=== PATIENT | female | born 1960 | race Caucasian/White ===

== ENCOUNTER 2022-02-27 14:19 | Outpatient (CLI) | payer MEDICARE, SELFPAY ==
--- NOTE | ~2022-02-27 | XR_ITS ---
EXAMINATION: XR hip LT min 3V w AP pelvis EXAM DATE: 02/27/2022 14:51 INDICATION: Left hip pain. TECHNIQUE: Left hip frontal, crosstable lateral and 'frog-leg' projections for interpretation. Fronta l projection pelvis. There is no prior study for comparison. FINDINGS: Smooth left hip femoral head contour, no radiographic evidence of avascular necrosis. Appea nirmala to the left hip intertrochanteric region is likely from old healed fracture and resultant bulky heterotopic ossification. There are no acute fractures or dislocations identified. There is no subc utaneous gas. Calcifications in the pelvis are believed to be phleboliths. There are gluteal granulo mas, calcifications. There are no radiopaque foreign bodies. There is mild to moderate symmetric bi lateral hip primary osteoarthritis. IMPRESSION: 1. Mild to moderate symmetric bilateral hip osteoarthritis. 2. Old left intertrochanteric fracture with bulky heterotopic ossification. Reviewed, dictated and finalized at location [facility].
== END 2022-02-27 14:20 | disposition home or self-care (01) ==
DX: M16.0 Bilateral primary osteoarthritis of hip (principal)
CPT/HCPCS: 73502

== ENCOUNTER 2022-03-04 14:40 | Emergency (ER) | payer MEDICARE, SELFPAY ==
--- NOTE | ~2022-03-04 | CT_ITS ---
EXAMINATION: CT brain wo con DATE: 03/04/2022 16:00 INDICATION: Fall. Head injury TECHNIQUE: Computed tomography (CT) of the head was performed without intravenous contrast. The mA wa s adjusted according to patient size. Iterative reconstruction technique was employed. Exam dose: 60 5.33 mGy-cm total exam DLP. COMPARISON: None FINDINGS: Chronic right frontal infarct with compensatory dilatation of the right frontal horn. No intracranial mass lesion or hemorrhage or recent cerebrovascular accident.. Bilateral carotid siphon internal carotid artery calcification. There is nonspecific diminished atte nuation of the cerebral white matter, likely due to chronic small vessel ischemic changes. No midline shift or mass effect. No subdural or epidural hematoma. No fracture or bone destruction of the cranial vault. The paranasal sinuses and mastoid air cells are clear. IMPRESSION: Chronic right frontal cerebrovascular accident Cerebrovascular atherosclerotic calcification and chronic small vessel ischemic changes Reviewed, dictated and finalized at [facility]. Reviewed, dictated and finalized at location A.
--- NOTE | ~2022-03-04 | CT_ITS ---
EXAMINATION: CT cervical spine wo con DATE: 03/04/2022 16:00 INDICATION: Neck injury. Fall. TECHNIQUE: Computed tomography (CT) of the cervical spine was performed without intravenous contrast. Automated exposure control and iterative reconstruction technique were employed. The dose-length pro duct was 110.15 mGy-cm. COMPARISON: None FINDINGS: There is a small left mastoid effusion. There is 14 degrees levoscoliosis of cervical spine . There are changes of anterior fusion procedure from C4 to C7 with healed interbody bone graft, inte rbody devices, and anterior plate and screws. Vertebral body heights are normal. There is mildly decr eased disc height at C3-C4. The following disc levels are specifically discussed: C2-C3: There is mild bilateral uncovertebral joint osteoarthritis. There is severe right and moderate left facet joint osteoarthritis. There is mild right neural foraminal stenosis. There is no central canal stenosis. C3-C4: There is severe bilateral uncovertebral joint osteoarthritis. There is severe bilateral facet joint osteoarthritis. There is moderate right and mild left neural foraminal stenosis. There is mild central canal stenosis. C4-C5: There is no uncovertebral joint hypertrophy. There is mild right facet joint hypertrophy. Ther e is no neural foraminal stenosis. There is no central canal stenosis. C5-C6: There is mild left uncovertebral joint hypertrophy. There is mild right facet joint hypertroph y. There is mild left neural foraminal stenosis. There is no central canal stenosis. C6-C7: There is no uncovertebral joint hypertrophy. There is no facet joint hypertrophy. There is no neural foraminal stenosis. There is no central canal stenosis. C7-T1: There is no uncovertebral joint osteoarthritis. There is mild bilateral facet joint osteoarthr itis. There is no neural foraminal stenosis. There is no central canal stenosis. IMPRESSION: 1. No fracture. 2. Anterior fusion procedure from C4 to C7. 3. Moderate cervical spondylosis. 4. Cervical levoscoliosis. Reviewed, dictated and finalized at location A.
--- NOTE | ~2022-03-04 | XR_ITS ---
EXAMINATION: XR chest 2V EXAM DATE: 03/04/2022 15:46 INDICATION: Syncopal episode, very stiff upper body. TECHNIQUE: Frontal and lateral projections of the chest obtained and reviewed. There is no prior megan dy for comparison. FINDINGS: The lungs are clear. There are no pleural effusions. The cardiomediastinal silhouette is within normal limits. There is no pneumothorax suspected. The bones and soft tissues are unremarkab le. There is cervical fusion hardware. IMPRESSION: No acute cardiopulmonary findings. Reviewed, dictated and finalized at location B.
--- NOTE | ~2022-03-04 | XR_ITS ---
XR foot LT min 3V DATE: 03/04/2022 15:47 INDICATION: The lower back in today. Bruising throughout the ankle and foot. TECHNIQUE: 4 views COMPARISON: None FINDINGS: Diffuse osteopenia. Status post surgical fusion at the tibiotalar joint. Status post surgical fusion at the proximal interphalangeal joint of the second and fifth digits. Osteoarthritic change at the first metatarsophalangeal and first interphalangeal joint. Old healed fracture at the neck of the fourth metatarsal bone. No recent fracture or dislocation is detected. No periosteal reaction or bone destruction. IMPRESSION: Successful surgical fusion at tibiotalar and second and fifth proximal interphalangeal jacob ints Osteopenia No recent fracture or dislocation Reviewed, dictated and finalized at location A. IMPRESSION: Successful surgical fusion at tibiotalar and second and fifth proxi mal interphalangeal joints Osteopenia No recent fracture or dislocation
--- NOTE | ~2022-03-04 | XR_ITS ---
XR ankle LT min 3V DATE: 03/04/2022 15:45 INDICATION: Fell over a vacuum cleaner furniture today. Bruising throughout ankle. TECHNIQUE: 4 views COMPARISON: None: FINDINGS: Status post surgical fusion at tibiotalar and proximal interphalangeal joints of second and fifth digits. No recent fracture or dislocation. No periosteal reaction or bone destruction. No periosteal reacti on or bone destruction. Diffuse osteopenia. IMPRESSION: Diffuse osteopenia Status post surgical fusion at tibiotalar and second and fifth proximal interphalangeal joints No fracture or dislocation Reviewed, dictated and finalized at location A. IMPRESSION: Diffuse osteopenia Status post surgical fusion at tibiotalar and second and fifth proximal interph alangeal joints No fracture or dislocation
[2022-03-04 14:43] VITALS: BP 103/54; PULSE 94; RESP 16; TEMP 37.1; O2SAT 99
--- NOTE | 2022-03-04 14:59 | ECG_ITS ---
Measurements Intervals [place] Rate: 71 P: 83 RI: 132 QRS: 76 QRSD: 90 T: 66 QT: 369 QTc: 402 Interpretive Statements SINUS RHYTHM NORMAL ECG NO PREVIOUS ECG AVAILABLE FOR COMPARISON Electronically Signed On 03-04-2022 17:06:05 CDT by Lars Coates M.D.
--- NOTE | 2022-03-04 15:08 | ED.FALL ---
HPI - Fall General Chief Complaint: Fall Stated Complaint: fall, head and neck injury Time Seen by Provider: 03/04/22 14:51 History of Present Illness HPI Narrative: 61-year-old female presents the emergency room status post fall that occurred this morning. Patient states that she was lying in bed stood up quickly, and her next memory was laying on the floor after she struck her head on a nearby vacuum suede cleaner. Patient denies a syncopal episode however cannot remember the events from when she stood up to get out of bed and when she was lying on the floor. Patient denies heart history. Patient states that she also twisted her left foot, which she says she has recently had a second and fifth metatarsal fusion. Patient has a history of a C2-C5 cervical fusion. She was sent here by her primary care physician in [place] and he is requesting a full head and neck work-up . Patient is alert and oriented x3 at this time Related Data Allergies Allergy/AdvReac Type Severity Reaction Status Date / Time No Known Allergies Allergy Verified 03/04/22 14:59 Review of Systems Review of Systems: CONSTITUTIONAL: Denies fever, chills, or sweats. EYES: Denies visual changes, redness, or discharge. ENT: Denies rhinorrhea, congestion, sore throat, or otalgia. CARDIOVASCULAR: Denies chest pain, palpitations, or edema. RESPIRATORY: Denies cough or dyspnea. GASTROINTESTINAL: Denies abdominal pain, nausea, vomiting, or diarrhea. GENITOURINARY: Denies dysuria or hematuria. SKIN: Denies rash or itching. MUSCULOSKELETAL: Reports head and cervical spine pain, reports left foot pain NEUROLOGIC: Denies headache, numbness, dizziness, or weakness. PSYCHIATRIC: Denies anxiety or depression. Exam Narrative: GENERAL: Well-appearing, well-nourished, and in no acute distress. HEAD: Normocephalic, atraumatic. EYES: PERRLA and EOMI. CHEST: Clear to auscultation. No respiratory distress. No wheezes rales or rhonchi HEART: Regular rate and rhythm. No murmur heard. Normal peripheral pulses. ABDOMEN: Soft, nontender, nondistended, normal active bowel sounds. EXTREMITIES: Left foot: Tenderness to the base of the fifth metatarsal. C-spine: Midline tenderness, no step-offs, no bony abnormality, full range of motion. SKIN: Warm, dry, no rash. NEURO: No focal deficits. Alert and oriented x3. PSYCH: Normal mood and affect. Course Vital Signs Vital signs: Vital Signs Temperature 37.1 C 03/04/22 14:43 Pulse Rate 94 03/04/22 14:43 Respiratory Rate 16 03/04/22 14:43 Blood Pressure 103/54 L 03/04/22 14:43 Pulse Oximetry 99 03/04/22 14:43 Temperature 37.1 C 03/04/22 14:43 Pulse Rate 94 03/04/22 14:43 Respiratory Rate 16 03/04/22 14:43 Blood Pressure 103/54 L 03/04/22 14:43 Pulse Oximetry 99 03/04/22 14:43 MDM - Fall MDM Narrative Medical decision making narrative: 61-year-old female presented the emergency room with multiple complaints. Patient states that she woke up this morning abruptly stood up out of bed and then fell striking her head on a nearby vacuum suede cleaner. Patient is complaining of neck and head pain, and also left foot pain. Patient has a history of cervical fusion, and effusions of her second and fifth metatarsals. Patient was evaluated for possible syncopal episode as well. EKG was normal sinus with no abnormalities. Chest x-ray showed no acute cardiothoracic abnormalities. CBC, CMP, and troponin are all unremarkable. X-ray of the left foot and ankle showed multiple healed fractures, with fusions of the second and fifth metatarsals. C-spine was negative for fracture. CT brain was negative for any intracranial abnormalities. Medical Records Attestation: I reviewed the patient's medical records. Lab Data Attestation: I reviewed the patient's lab results. Result diagrams: 03/04/22 15:19 03/04/22 15:19 Labs: Lab Results 03/04/22 03/04/22 Range/Units 15:19 15:19 WBC Pending RBC
[2022-03-04 15:29] LABS: Hematocrit 44.6 % (37.0-47.0); Hemoglobin 14.3 g/dL (12.0-15.0); Mean Corpuscular HGB Conc 32.1 g/dl (32-36); Mean Corpuscular Hemoglobin 31.3 pg (26-34); Mean Corpuscular Volume 97.6 fl (80-100); Platelet Count Result 411 k/mm3 (150-375); Red Blood Count 4.57 M/mm3 (4.2-5.4); Red Cell Distribution Width 15.2 % (11.5-14.5); White Blood Count 8.6 K/mm3 (4.5-10.0)
[2022-03-04 15:42] LABS: Alanine Aminotransferase 18 U/L (4-35); Albumin Level 4.5 g/dL (3.5-5.1); Alkaline Phosphatase 79 U/L (38-126); Anion Gap 10 mmol/L (8-16); Aspartate Amino Transferase 36 U/L (14-36); Bilirubin,Total 0.2 mg/dL (0.2-1.3); Blood Urea Nitrogen 22 mg/dL (7-17); Calcium 9.1 mg/dL (8.4-10.2); Carbon Dioxide 30 mmol/L (22-30); Chloride 99 mmol/L (98-107); Estimated CRCL calculation 60 ml/min; Estimated Glomerular Filt Rate > 60; Glucose 108 mg/dL (65-110); Potassium 4.2 mmol/L (3.4-5.0); Sodium 139 mmol/L (137-145)
[2022-03-04 15:54] LABS: Troponin I < 0.012 ng/mL (0.000-0.034)
--- NOTE | 2022-03-04 16:21 | PC.NURSE ---
NUT SORTER at bedside to discuss results with pt.
--- NOTE | 2022-03-04 16:44 | PC.NURSE ---
Awaiting disc of imaging for discharge.
[2022-03-04 16:45] LABS: Band Neutrophils Percent 2 % (0-6); Lymphocytes Absolute Manual 3.26 K/mm3 (1.1-4.5); Monocytes Percent Manual 7 % (3-9); Neutrophils Absolute Manual 4.73 K/mm3 (1.7-7.2); Neutrophils Percent Manual 53 % (46-73); Total Cells Counted 100
[2022-03-04 16:46] LABS: Anisocytosis 2+ (NORMAL); Atypical Lymphocytes Present; Platelet Estimate Increased (Adequate)
[2022-03-04 16:53] VITALS: BP 102/64; PULSE 60; RESP 16; O2SAT 100
== END 2022-03-04 16:54 | disposition home or self-care (01) ==
PROVIDERS: Emergency Provider Nurse Practitioner Family
DX: S09.90XA Unspecified injury of head, initial encounter (principal); S19.9XXA Unspecified injury of neck, initial encounter; S99.922A Unspecified injury of left foot, initial encounter; Z98.1 Arthrodesis status; M85.872 Other specified disorders of bone density and structure, left ankle and foot; M47.812 Spondylosis without myelopathy or radiculopathy, cervical region; W06.XXXA Fall from bed, initial encounter
CPT/HCPCS: 36415; 70450; 71046; 72125; 73610; 73630; 80053; 84484; 85025; 93005; 99284